=== PATIENT | male | born 1965 | race Hispanic/Latino ===

== ENCOUNTER 2019-02-26 21:44 | Emergency (ER) | payer BC, OTHER ==
[2019-02-26] MEDS ORDERED: SODIUM CHLORIDE 0.9% 1000ML 1,000 ML IV ONE ×2 (22:00→22:56)
[2019-02-26] MEDS ORDERED: KETOROLAC TROMETHAMINE 30MG/ML ONE (22:09)
[2019-02-26] MEDS ORDERED: ONDANSETRON HCL 4 MG/2 ML VIAL ONE (22:09)
[2019-02-26 22:17] LABS: BASOPHILS % (AUTO) 0.8 % (0.0-5.0); EOSINOPHILS % (AUTO) 1.4 % (0.0-8.0); HEMATOCRIT 42.8 % (42-54); LYMPHOCYTES % (AUTO) 41.9 % (21.0-51.0); MEAN CORPUSCULAR HGB CONC 34.3 g/dL (32.0-36.0); MEAN CORPUSCULAR VOLUME 93.3 fL (79-99); MONOCYTES % (AUTO) 10.6 % (3.0-13.0); NEUTROPHILS % (AUTO) 45.3 % (40.0-77.0); NUCLEATED RED BLOOD CELLS 0.1 % (0.0-0.19); PLATELET COUNT (AUTO) 188 K/uL (130-400); RED BLOOD CELL COUNT(AUTO) 4.59 MIL/uL (4.50-6.20); RED CELL DISTRIBUTION WIDTH 13.8 % (11.0-15.5); WHITE BLOOD COUNT (AUTO) 7.9 K/uL (4.8-10.8)
[2019-02-26 22:25] LABS: APPEARANCE,URINE Clear (CLEAR); BILIRUBIN,URINE Negative (NEGATIVE); COLOR,URINE Yellow (YELLOW); GLUCOSE, URINE (UA) Negative (NEGATIVE); KETONES,URINE Negative (NEGATIVE); LEUKOCYTE ESTERASE ,URINE Negative (NEGATIVE); NITRATE,URINE Negative (NEGATIVE); OCCULT BLOOD,URINE Moderate (NEGATIVE); PROTEIN,URINE Trace mg/dL (NEGATIVE)
[2019-02-26 22:32] LABS: CREATININE 1.6 mg/dL (0.5-1.5); INR 1.03 (0.85-1.15); PARTIAL THROMBOPLASTIN TIME 26.5 SEC (26.3-35.5); POTASSIUM 3.6 mmol/L (3.5-5.1); PROTHROMBIN TIME 10.8 SEC (9.6-11.6)
[2019-02-26 22:36] LABS: BILIRUBIN,TOTAL 0.3 mg/dL (0.2-1.0); TOTAL PROTEIN, SERUM 8.3 g/dL (6.0-8.3)
[2019-02-26 22:41] LABS: BACTERIA,URINE Rare /HPF (None Seen); SQUAMOUS EPITHELIAL CELL,UR Moderate /HPF (0-2); WBC,URINE None Seen /HPF (0-1)
[2019-02-26] MEDS ORDERED: METOCLOPRAMIDE 10 MG/2 ML VIAL ONE (23:39)
[2019-02-26] MEDS ORDERED: TAMSULOSIN HCL 0.4 MG CAP.ER.24H ONE (23:39)
== END 2019-02-27 00:13 | disposition home or self-care (01) ==
LOC: EDH 21:44
DX: N20.1 Calculus of ureter (principal); N23 Unspecified renal colic
CPT/HCPCS: 36415; 74176; 80053; 81001; 82550; 83605; 83690; 84484; 85025; 85610; 85730; 96374; 96375; 99285; J1885; J2405; J2765; J7030 ×2

== ENCOUNTER 2021-04-04 04:40 | Emergency (ER) | payer BC, OTHER ==
[~2021-04-04] VITALS: Ht 167.6 cm; Wt 89.8 kg
[2021-04-04] MEDS ORDERED: ONDANSETRON 4MG INJ ONE (05:37)
[2021-04-04] MEDS ORDERED: MORPHINE 4 MG SYG ONE (05:38)
[2021-04-04] MEDS ORDERED: KETOROLAC 30MG VIAL (30MG/ML) ONE (05:38)
[2021-04-04 05:39] LABS: BASOPHILS % (AUTO) 0.9 % (0.0-5.0); EOSINOPHILS % (AUTO) 1.7 % (0.0-8.0); HEMATOCRIT 43.9 % (42-54); LYMPHOCYTES % (AUTO) 45.3 % (21.0-51.0); MEAN CORPUSCULAR HEMOGLOBIN 30.9 pg (27.0-33.0); MEAN CORPUSCULAR HGB CONC 33.3 g/dL (32.0-36.0); MEAN CORPUSCULAR VOLUME 92.8 fL (79-99); MONOCYTES % (AUTO) 11.6 % (3.0-13.0); NEUTROPHILS % (AUTO) 40.3 % (40.0-77.0); PLATELET COUNT (AUTO) 200 K/uL (130-400); RED BLOOD CELL COUNT(AUTO) 4.73 MIL/uL (4.50-6.20); RED CELL DISTRIBUTION WIDTH 13.7 % (11.0-15.5); WHITE BLOOD COUNT (AUTO) 8.1 K/uL (4.8-10.8)
[2021-04-04 05:49] LABS: CREATININE 1.4 mg/dL (0.5-1.5); POTASSIUM 3.5 mmol/L (3.5-5.1)
[2021-04-04 05:54] LABS: ALBUMIN 3.8 g/dL (3.5-5.0); BILIRUBIN,TOTAL 0.4 mg/dL (0.2-1.0); TOTAL PROTEIN, SERUM 7.9 g/dL (6.0-8.3)
[2021-04-04 05:55] LABS: APPEARANCE,URINE Clear (CLEAR); BILIRUBIN,URINE Negative (NEGATIVE); COLOR,URINE Yellow (YELLOW); GLUCOSE, URINE (UA) Negative (NEGATIVE); KETONES,URINE Trace mg/dL (NEGATIVE); LEUKOCYTE ESTERASE ,URINE Negative (NEGATIVE); NITRATE,URINE Negative (NEGATIVE); OCCULT BLOOD,URINE Trace (NEGATIVE); PROTEIN,URINE Trace mg/dL (NEGATIVE)
[2021-04-04] MEDS ORDERED: KETOROLAC 30MG VIAL (30MG/ML) IVP ONE (06:00)
[2021-04-04] MEDS ORDERED: ONDANSETRON 4MG INJ IVP ONE (06:00)
[2021-04-04] MEDS ORDERED: 0.9%NACL 1000ML 1,000 ML IV ONE (06:00)
[2021-04-04] MEDS ORDERED: MORPHINE 4 MG SYG IVP ONE (06:00)
[2021-04-04 06:12] LABS: BACTERIA,URINE Rare /HPF (None Seen); RBC,URINE 0-1 /HPF (0-1); SQUAMOUS EPITHELIAL CELL,UR 0-2 /HPF (0-2)
[2021-04-04] MEDS ORDERED: IBUP-2070 PO (06:51)
[2021-04-04 07:10] VITALS: BP 109/64
== END 2021-04-04 07:22 | disposition home or self-care (01) ==
LOC: EDH 04:40
DX: R10.30 Lower abdominal pain, unspecified (principal); R73.9 Hyperglycemia, unspecified; R03.0 Elevated blood-pressure reading, without diagnosis of hypertension; Z79.1 Long term (current) use of non-steroidal anti-inflammatories (NSAID); Z79.899 Other long term (current) drug therapy; Z87.442 Personal history of urinary calculi
CPT/HCPCS: 36415; 76770; 80053; 81001; 85025; 96361; 96374; 96375; 99284; J1885; J2270; J2405